=== PATIENT | male | born 1980 | race Caucasian/White ===

== ENCOUNTER 2019-11-04 14:45 | Emergency (ER) | payer OTHER ==
[~2019-11-04] VITALS: Ht 160 cm; Wt 45.4 kg
[2019-11-04 15:46] LABS: URINE BLOOD NEGATIVE (Negative); URINE CLARITY CLEAR; URINE COLOR YELLOW; URINE GLUCOSE-RANDOM TRACE (Negative); URINE KETONES TRACE (Negative); URINE LEUKOCYTES-REFLEX NEGATIVE (Negative); URINE PROTEIN 2+ (Negative); URINE SPECIFIC GRAVITY >= 1.030 (1.005-1.030)
[2019-11-04 15:48] LABS: URINE BILIRUBIN 3+ (Negative); URINE NITRITE-REFLEX POSITIVE (Negative)
[2019-11-04 15:55] LABS: ICTOTEST (BILI CONFIRMATORY) Positive (Negative)
[2019-11-04 16:09] LABS: BACTERIA-REFLEX >30 Many /HPF (None Seen); CRYSTALS None Seen /LPF (None Seen); HYALINE CASTS 4-10 Moderate /LPF (None Seen); SQUAMOUS 0-3 Few /LPF (0-3); URINE RBC 0-2 Rare /HPF (0-2); URINE WBC-REFLEX 0-5 Rare /HPF (0-5)
[2019-11-04 16:13] LABS: HEMATOCRIT 48.3 % (42.0-52.0); MCH 34.6 pg (26.0-34.0); MCHC 35.2 g/dL (28.0-37.0); MCV 98.2 fL (80.0-100.0); MPV 9.9 fl. (7.2-11.1); NUCLEATED RBCS 0 /100WBC; PLATELET COUNT* 52 thou/uL (150-400); RBC 4.92 mil/uL (4.50-6.00); RDW-CV 13.6 % (10.5-14.5); WBC 9.7 thou/uL (4.0-11.0)
[2019-11-04 16:26] LABS: CALCIUM 9.5 mg/dL (8.5-10.1); CREATININE 1.3 mg/dL (0.6-1.3); POTASSIUM 3.8 mmol/L (3.5-5.1)
[2019-11-04 16:35] LABS: ALBUMIN 4.3 g/dL (3.4-5.0); TOTAL BILIRUBIN 5.1 mg/dL (<0.1-1.0); TOTAL PROTEIN 7.7 g/dL (6.4-8.2)
[2019-11-04] MEDS ORDERED: NAPROSYN500 MG PO ×2 (16:40→16:55)
[2019-11-04] MEDS ORDERED: NORCO 5-325 TA1 EAC1 PO ×2 (16:40→16:55)
[2019-11-04] MEDS ORDERED: CIPRO500 M1 PO ×2 (16:40→16:55)
[2019-11-04] MEDS ORDERED: ONDANSETRON HCL4 M2 PO ×2 (16:40→16:55)
[2019-11-04 17:09] LABS: ABSOLUTE LYMPHOCYTES 0.4 thou/uL (0.8-5.3); ABSOLUTE NEUTROPHILS 9.3 thou/uL (1.6-8.1); PLATELET ESTIMATE DECREASED
[2019-11-04 17:22] VITALS: BP 144/100
--- NOTE | 2019-11-05 09:11 | EKG ---
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
== END 2019-11-04 17:19 | disposition left against medical advice (07) ==
LOC: M.ERS 14:45
PROVIDERS: Nurse Practitioner Family
DX: N39.0 Urinary tract infection, site not specified (principal); Q62.39 Other obstructive defects of renal pelvis and ureter; R74.0 Nonspecific elevation of levels of transaminase and lactic acid dehydrogenase [LDH]; R11.2 Nausea with vomiting, unspecified; F17.210 Nicotine dependence, cigarettes, uncomplicated

== ENCOUNTER 2020-09-28 06:04 | Emergency (ER) | payer OTHER ==
[~2020-09-28] VITALS: Ht 154.9 cm; Wt 45.4 kg
[~2020-09-28 06:04] MED LIST: CIPRO500 M1 PO; NAPROSYN500 MG PO; NORCO 5-325 TA1 EAC1 PO; ONDANSETRON HCL4 M2 PO
[2020-09-28 06:46] LABS: URINE BILIRUBIN NEGATIVE (Negative); URINE BLOOD 1+ (Negative); URINE CLARITY CLEAR; URINE COLOR YELLOW; URINE GLUCOSE-RANDOM NEGATIVE (Negative); URINE KETONES 1+ (Negative); URINE LEUKOCYTES NEGATIVE (Negative); URINE NITRITE NEGATIVE (Negative); URINE PROTEIN 1+ (Negative); URINE SPECIFIC GRAVITY >= 1.030 (1.005-1.030); URINE UROBILINOGEN 0.2 E.U./dl (0.2-1.0)
[2020-09-28 06:50] LABS: AMP/METHAMP Negative (Negative); BARBITURATES Negative (Negative); BENZODIAZEPINES Negative (Negative); COCAINE Negative (Negative); METHADONE Negative (Negative); OPIATES Negative (Negative); PCP Negative (Negative); THC POSITIVE (Negative)
[2020-09-28 06:55] LABS: HEMATOCRIT 44.2 % (42.0-52.0); HEMOGLOBIN 15.2 gm/dL (14.0-18.0); MCH 34.2 pg (26.0-34.0); MCHC 34.4 g/dL (28.0-37.0); MCV 99.3 fL (80.0-100.0); MPV 7.7 fl. (7.2-11.1); RBC 4.45 mil/uL (4.50-6.00); RDW-CV 13.6 % (10.5-14.5); WBC 9.8 thou/uL (4.0-11.0)
[2020-09-28 06:59] LABS: CALCIUM 9.2 mg/dL (8.5-10.1); CREATININE 1.1 mg/dL (0.6-1.3); POTASSIUM 4.5 mmol/L (3.5-5.1)
[2020-09-28 07:09] LABS: ALBUMIN 4.6 g/dL (3.4-5.0); TOTAL BILIRUBIN 1.1 mg/dL (<0.1-1.0); TOTAL PROTEIN 8.1 g/dL (6.4-8.2)
[2020-09-28 07:10] LABS: BACTERIA 1-9 Few /HPF (None Seen); CASTS None Seen /LPF (None Seen); CRYSTALS None Seen /LPF (None Seen); MUCUS 0-3 Light strn/LPF (None Seen); SQUAMOUS 0-3 Few /LPF (0-3); URINE RBC 3-10 Few /HPF (0-2); URINE WBC 0-5 Rare /HPF (0-5)
[2020-09-28 07:13] LABS: ALCOHOL 142 mg/dL (<10); SALICYLATE 3.7 mg/dL (2.8-20.0)
[2020-09-28 07:14] LABS: ACETAMINOPHEN < 3 ug/mL (10-30)
[2020-09-28] MEDS ORDERED: ZOFRAN ODT4 MG DISSOLVE (07:32)
[2020-09-28 07:41] VITALS: BP 138/94
--- NOTE | 2020-09-28 09:09 | EKG ---
[place] [address] ELECTROCARDIOGRAM REPORT Name: JOYCELYN RIGGS Room: [facility].#: [id number] Admission: 09/28/20 Attend Phys: Discharge: 09/28/20 Date of : 78 Date of Service: 09/28/20 0644 Report #: [id number] THIS REPORT FOR: //name// 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1980 Requested By: Marion Stewart Order Number: [id number] MD: Shivam Ambriz Measurements Intervals [place] Rate: 93 P: 68 CT: 153 QRS: 61 QRSD: 100 T: 54 QT: 343 QTc: 427 Interpretive Statements Sinus rhythm Consider right atrial enlargement Artifact in lead(s) II,III,aVR,aVF,V1,V2 Compared to ECG 11/04/2019 15:54:17 Right-axis deviation no longer present Electronically Signed On 09-28-2020 9:09:07 [employer]ESS FINISH[employer] by Shivam Ambriz [email or web address] <ELECTRONICALLY SIGNED> By: Shivam Ambriz MD, FAC 09/28/2009 Shivam Ambriz MD, [facility] /EPI
== END 2020-09-28 07:43 | disposition home or self-care (01) ==
LOC: M.ERS 06:04
PROVIDERS: Personal Emergency Response Attendant
DX: F10.239 Alcohol dependence with withdrawal, unspecified (principal); F10.229 Alcohol dependence with intoxication, unspecified; R11.2 Nausea with vomiting, unspecified; R55 Syncope and collapse; Y90.6 Blood alcohol level of 120-199 mg/100 ml